=== PATIENT | female | born 1995 | race Caucasian/White ===

== ENCOUNTER 2018-01-21 16:13 | Observation (INO) ==
[2018-01-21 16:48] LABS: Basophils % 0.2 %; Eosinophils # 0.1 K/mcL (0.0-0.6); Eosinophils % 0.4 %; Hematocrit 41.2 % (35.3-44.9); Hemoglobin 12.7 g/dL (11.5-15.4); Immature Granulocytes % 0.6 % (0-4); Lymphocytes # 2.2 K/mcL (0.6-4.6); Lymphocytes % 16.9 %; Mean Corpuscular HGB Conc 30.8 g/dL (31.6-35.5); Mean Corpuscular Hemoglobin 24.2 pg (28.0-33.3); Mean Corpuscular Volume 78.6 fL (83.0-100.0); Monocytes # 0.9 K/mcL (0.0-1.3); Monocytes % 6.9 %; Neutrophils # 9.5 K/mcL (1.6-8.9); Platelet Count 311 K/mcL (140-400); Red Blood Count 5.24 M/mcL (3.82-4.97); Red Cell Distribution Width 14.2 % (11.5-14.5)
[2018-01-21 17:04] LABS: Alanine Aminotransferase 6 Units/L (7-52); Aspartate Amino Transferase 10 Units/L (13-39); BUN/Creatinine Ratio 14 (6-26); Blood Urea Nitrogen 8 mg/dL (6-20); Lactate Dehydrogenase 144 Units/L (140-271); Uric Acid 5.4 mg/dL (2.3-7.6); eGFR For Non-African Americans > 60 (> 60)
[2018-01-21 17:17] LABS: Protein/Creatinine Ratio,Urine 0.17 mg/mg (0.00-0.20)
--- NOTE | 2018-01-21 18:23 | Discharge Summary ---
Date of Encounter: 01/21/18 Time of Encounter: 18:23 - Discharge Diagnosis (1) 39 weeks gestation of Priority: Primary Status: Acute Comments: admitted for PIH evaluation after elevated BP in office BPs, labs and NST reviewed with Dr. Cain who recommends discharge home (2) NST (non-stress test) reactive on surveillance Priority: Secondary Status: Acute Comments: FHR baseline 135 bpm moderate variability +15x15 accels no decels noted. Irregular contractions Cat. 1 tracing - Discharge Medications Allergies/Adverse Reactions: Allergy/AdvReac Type Severity Reaction Status Date / Time No Known Allergies Allergy Verified 07/25/17 22:53 Data Procedures and tests throughout hospitalization: Laboratory Tests 01/21/18 01/21/18 01/21/18 16:30 16:32 16:32 WBC 12.7 H RBC 5.24 H Hgb 12.7 Hct 41.2 MCV 78.6 L MCH 24.2 L MCHC 30.8 L RDW 14.2 Plt Count 311 MPV 12.0 Immature Gran % 0.6 Seg Neutrophils % 75.0 Lymphocytes % 16.9 Monocytes % 6.9 Eosinophils % 0.4 Basophils % 0.2 Neutrophils # 9.5 H Lymphocytes # 2.2 Monocytes # 0.9 Eosinophils # 0.1 Basophils # 0.0 BUN 8 Creatinine 0.57 L Est GFR ( Amer) > 60 Est GFR (Non-Af Amer) > 60 BUN/Creatinine Ratio 14 Uric Acid 5.4 AST 10 L ALT 6 L Lactate Dehydrogenase 144 Urine Creatinine 140 Protein/Creatinin Ratio 0.17 Urine Total Protein 24 H Labs on day of discharge: Labs from last 24 hours 01/21/18 01/21/18 01/21/18 16:32 16:32 16:30 WBC 12.7 H RBC 5.24 H Hgb 12.7 Hct 41.2 MCV 78.6 L MCH 24.2 L MCHC 30.8 L RDW 14.2 Plt Count 311 MPV 12.0 Immature Gran % 0.6 Seg Neutrophils % 75.0 Lymphocytes % 16.9 Monocytes % 6.9 Eosinophils % 0.4 Basophils % 0.2 Neutrophils # 9.5 H Lymphocytes # 2.2 Monocytes # 0.9 Eosinophils # 0.1 Basophils # 0.0 BUN 8 Creatinine 0.57 L Est GFR ( Amer) > 60 Est GFR (Non-Af Amer) > 60 BUN/Creatinine Ratio 14 Uric Acid 5.4 AST 10 L ALT 6 L Lactate Dehydrogenase 144 Urine Creatinine 140 Protein/Creatinin Ratio 0.17 Urine Total Protein 24 H Date of admission: 01/21/18 15:51 Primary care physician: Jyotsna Robles CNP Discharging clinician: Eugenia Cox Anticipated date of discharge: 01/21/18 - Patient Status Disposition: Home, Self-Care Condition: Good Functional capacity at discharge: independent ambulation - Discharge Instructions Follow Up With: Jyotsna Robles CNP [Primary Care Provider] - Wilbert Peraza MD [Partnered Physician] - Additional Instructions: LABOR AND DELIVERY DISCHARGE INSTRUCTIONS Signs and Symptoms to be Reported to your Doctor Immediately: * Sudden gush, continuous or intermittent lead of fluid from vagina (note the time of gush and color of fluid) * Onset of bright red vaginal bleeding with or without pain (if you had a vaginal exam during this visit you may notice some dark red spotting. This is normal.) * Contractions that are 5 minutes apart (from the beginning of one contraction to the beginning of the next) and last 45-60 seconds; contractions that you can no longer walk, talk or laugh through. * A change in the baby's activity. This could be an increase or decrease in activity. * Severe headache which does not go away with tylenol. * Sudden swelling in the face, hands, arms and/or legs. * Upper abdominal pain - sometimes associated with heartburn or nausea and is not relieved by Maalox, Mylanta or Tums. * Kick Counts __ One hour after a meal, lay down on one side in a quiet place. Count the number of time the baby moves during an hour. If less than 6 movements, notify your physician Diet: *Force fluids, 8 to 10 tall glasses of fluid per day - may include popsicles and jello *Limit caffeine - this includes chocolate, coffee, tea, any soft drink containing such as all stu, Travis Yellow and Mountain Dew - Diet and Activity Activity: increase activity as tolerated Diet: regular diet Hospital Course [employer] Hospital course: Patient is a 22 y/o at 39w4d presents to labor and delivery from OB office after having an elevated BP. Patient denies headache, visual disturbances or epigastric pain. Patient reports good movement. Discussed POC with patient all lab work and BP. Patient scheduled for IOL on Thursday at 0800, consent and order signed. Time Attestation: Total time spent providing and/or coordinating discharge services: Time Spent: Less than 30 minutes Exam - Constitutional General appearance IM: A&O X 3, pleasant, answers questions appropriately - Respiratory Respiratory exam: Present: CTAB - Cardiovascular Cardiovascular exam IM: Present: RRR, +S1, +S2 - GI/Abdominal GI/Abdominal exam IM: normal bowel sounds - Extremities Exam Extremities exam IM: Present: full ROM, normal capillary refill, normal inspection - Neurological Exam Neurological exam: alert, oriented X3, reflexes normal - Other Additional findings: FHR 135 bpm moderate variability + 15x15 accels no decels noted Cat. 1 tracing irregular contractions - VTE Reasons for not Prescribing Prophylaxis: Treatment not Indicated - Low risk for VTE
== END 2018-01-21 18:30 | disposition home or self-care (01) ==
LOC: 1NENULAB
PROVIDERS: ADMIT Advanced Practice Midwife; ATTEND Advanced Practice Midwife

== ENCOUNTER 2018-01-23 07:52 | Inpatient (IN) ==
[2018-01-23] MEDS ORDERED: Ringers Solution, Lactated 1,000 ML IVC SCH (08:30)
[2018-01-23] MEDS ORDERED: Ondansetron 4 MG/2 ML VIAL IVP PRN (08:30)
[2018-01-23] MEDS ORDERED: *HR* Nalbuphine 10 MG/ML AMPUL IVP PRN (08:30)
[2018-01-23] MEDS ORDERED: Famotidine 20 MG/2 ML VIAL IVP PRN (08:30)
[2018-01-23] MEDS ORDERED: miSOPROStol 100 MCG TABLET PO ONE (08:30)
[2018-01-23] MEDS ORDERED: Naloxone 0.4 MG/ML INJ IVP PRN (08:30)
[2018-01-23] MEDS ORDERED: Metoclopramide 10 MG/2 ML VIAL IVP PRN (08:30)
[2018-01-23 08:56] LABS: Basophils % 0.2 %; Eosinophils # 0.2 K/mcL (0.0-0.6); Eosinophils % 0.9 %; Hematocrit 39.6 % (35.3-44.9); Hemoglobin 12.4 g/dL (11.5-15.4); Immature Granulocytes % 0.7 % (0-4); Lymphocytes # 2.7 K/mcL (0.6-4.6); Lymphocytes % 16.1 %; Mean Corpuscular HGB Conc 31.3 g/dL (31.6-35.5); Mean Corpuscular Hemoglobin 24.7 pg (28.0-33.3); Mean Corpuscular Volume 78.9 fL (83.0-100.0); Mean Platelet Volume 12.5 fL (9.4-12.4); Monocytes # 1.2 K/mcL (0.0-1.3); Monocytes % 7.3 %; Neutrophils # 12.5 K/mcL (1.6-8.9); Platelet Count 273 K/mcL (140-400); Red Blood Count 5.02 M/mcL (3.82-4.97); Red Cell Distribution Width 14.4 % (11.5-14.5); Segmented Neutrophils % 74.8 %
[2018-01-23 08:57] LABS: Amphetamine Screen,Urine Negative ng/mL (Cutoff=1000); Barbiturate Screen,Urine Negative ng/mL (Cutoff=200)
[2018-01-23 08:58] LABS: Benzodiazepines Screen,Urine Negative ng/mL (Cutoff=300); Cannabinoid Screen,Urine Negative ng/mL (Cutoff = 50); Cocaine Screen,Urine Negative ng/mL (Cutoff= 300); Opiate Screen,Urine Negative ng/mL (Cutoff=300); Phencyclidine Screen,Urine Negative ng/mL (Cutoff=25)
[2018-01-23 10:07] LABS: Uric Acid 5.2 mg/dL (2.3-7.6)
--- NOTE | 2018-01-23 10:29 | OB/GYN History & Physical ---
Date of Encounter: 01/23/18 Time of Encounter: 10:22 Assessment and Plan (1) 39 weeks gestation of Current visit: Yes Status: Acute Admit for induction of labor GBS negative Cytotec Patient may have nubain/epidural upon request Anticipate vaginal delivery POC per consult with Dr Squires History of Present Illness Chief complaint: Elective IOL HPI: Ms. Leos is a 22 year old at 39 weeks and 6 days that presents to labor and delivery for elective induction of labor. She was seen by Dr Peraza and has had a normal course. Her most recent ultrasound on 01/07 showed an EFW of 2940g and an MIAN of 24. She states positive movement. She denies headaches, visual disturbances, epigastric pain, leaking of fluid, and vaginal bleeding. Past Med Surg Social Fam HX - Past Medical History Medical history: no medical history Psychiatric history: anxiety - Past Surgical History Surgical History: other Additional surgical history: wisdom teeth - Social History Smoking Status: Never smoker Smokeless Tobacco Status: No Alcohol use: none Drug use: none - Family History Father Living Status: Still Living Hx Family Cardiac Disorders: No Hx Family Respiratory Disorders: No Hx Family Cancer: No Hx Family GI Disorders: No Hx Family Genitourinary Disorders: No Hx Family Endocrine Disorder: Yes (DM) Hx Family Musculoskeletal Disorders: No Hx Family Neuromuscular Disorders: No Hx Family Neurologic Disorders: No Hx Family HEENT Disorders: No Hx Family Autoimmune Disorders: No Hx Family Reproductive Disorders: No Hx Family Psychosocial Disorders: No Hx Family Medical Disorders: No Obstetrical History - Pregnancies : 1 Para: 0 Term: 0 : 0 Ab's: 0 Livin Medications and Allergies Vit #108/Iron/FA [ One Tablet] 1 tab PO DAILY 01/23/18 [History] Allergy/AdvReac Type Severity Reaction Status Date / Time No Known Allergies Allergy Verified 07/25/17 22:53 Review of System OB All systems PM: reviewed and no additional remarkable complaints except as stated Exam - Constitutional Constitutional: well developed, well nourished, no acute distress, average body habitus - HEENT HEENT: Normocephaly, Mucus Membranes Moist - Neck Neck exam: full ROM - Lungs Respiratory exam: CTAB - Cardiovascular Cardiovascular exam: RRR, +S1, +S2 - Abdomen Abdomen: Present: bowel sounds normal, gravid, non tender - Extremities Extremities exam: normal capillary refill, normal inspection, radial pulses palpable and symmetrical Deep Tendon Reflex Grade: 2+ Normal - Vulva Vulva: bilateral: normal - Vagina Vagina: Present: normal moisture - Cervix Dilation: 2 (per office exam on 01/21) Effacement: 60 Station: -2 - Anus/Rectum Anus/Rectum: Present: normal perianal skin Results Result Diagrams: 01/23/18 08:32 Abnormal lab results WBC 16.7 K/mcL (4.3-11.1) H 01/23/18 08:32 RBC 5.02 M/mcL (3.82-4.97) H 01/23/18 08:32 MCV 78.9 fL (83.0-100.0) L 01/23/18 08:32 MCH 24.7 pg (28.0-33.3) L 01/23/18 08:32 MCHC 31.3 g/dL (31.6-35.5) L 01/23/18 08:32 MPV 12.5 fL (9.4-12.4) H 01/23/18 08:32 Neutrophils # 12.5 K/mcL (1.6-8.9) H 01/23/18 08:32 AST 10 Units/L (13-39) L 01/23/18 09:45 ALT 5 Units/L (7-52) L 01/23/18 09:45 Lactate Dehydrogenase 139 Units/L (140-271) L 01/23/18 09:45 All other labs normal. - VTE Reasons for not Prescribing Prophylaxis: Treatment not Indicated - Low risk for VTE
[2018-01-23] MEDS ORDERED: EPHEDrine 50 MG/ML VIAL IVP PRN (13:08)
[2018-01-23] MEDS ORDERED: Ringers Solution, Lactated 500 ML IVC ONE (13:08)
--- NOTE | 2018-01-23 13:08 | Anesthesia Evaluation PreOp ---
Date of Encounter: 01/23/18 Time of Encounter: 13:06 - Past History Planned Operation: KYLE Cardiac History: Denies any Significant Hx Pulmonary History: Denies Any Significant HX REED PRESS FEEDER History: Denies Any Significant HX Other Medical History: Denies Any Significant HX Anesthesia History: No Prior Anesthetic Complications : Yes (39.6 ) Alcohol Use: none Drug use: none Medications and Allergies Vit #108/Iron/FA [ One Tablet] 1 tab PO DAILY 01/23/18 [History] Allergy/AdvReac Type Severity Reaction Status Date / Time No Known Allergies Allergy Verified 07/25/17 22:53 - Meds/Allergy Pre-op Review Medications Reviewed: Yes Allergies Reviewed: Yes Beta Blockers on Current Med List: No Anesthesia Results - Labs 01/23/18 08:32 Anesthesia Exam O2 Sat Height 1.7 m Weight 86.8 kg NPO (# of Hours): 4 Pain Scale: 1 Pain Scale Used: Numeric (1 - 10) - HEENT Pupil (Motor): Pupils equal Mallampati: II Teeth: Normal Oral Opening: Greater than 3 - REED PRESS FEEDER LOC: Oriented REED PRESS FEEDER Motor: Normal RUE, Normal LUE, Normal RLE, Normal LLE, Normal Face REED PRESS FEEDER Sensory: Normal: RUE, LUE, RLE, LLE, Face - Cardiac Rhythm: Regular Murmur: None JVD: No Carotid Bruit: No - Pulmonary Breath Sounds: bilateral Clear Respiratory Effort: Symmetrical Anesthesia Assess/Plan ASA Score: 2 Level of consciousness: Cooperative, Oriented Anesthetic Plan: General (plan b), Epidural (plan a) Autologous Blood: Yes Monitoring Plan: Standard Monitors Recovery Plan: PACU
[2018-01-23] MEDS ORDERED: Epidural Premix (fent/bupiv) 110 ML EP SCH (13:15)
--- NOTE | 2018-01-23 14:08 | OB Labor Progress Note ---
Date of Encounter: 01/23/18 Time of Encounter: 14:06 Labor Progress Note - Subjective Subjective: Patient states she is feeling some contractions in her lower back and on her left lower abdomen, but they are currently tolerable - Vital Signs Vital Signs: VSS - Cervix Cervix: 3/70/-2 posterior - Heart Tones Heart Tones: FHTs 140 moderate variability with 15 x 15 accels; category I tracing - Amanda Amanda: uterine irritability - Plan Plan: Continue routine labor management GBS negative Start pitocin Patient may have nubain/epidural upon request Consider AROM after 4 cm dilation Anticipate vaginal delivery POC per consult with Dr Squires
[2018-01-23] MEDS ORDERED: Oxytocin 20 units/ LR 1000 mL 20 UNIT/1,000 ML BAG IVC SCH (14:15)
[2018-01-23] MEDS ORDERED: Lidocaine -MPF 1% 5 ML AMPUL ONE ×2 (14:41→22:02)
[2018-01-23] MEDS: Mag Hydrox/Al Hydrox/Simeth 30 ML UDC PO PRN ×2 (16:31→23:36)
[2018-01-23] MEDS ORDERED: Acetaminophen 325 MG TABLET PO ONE (16:54)
--- NOTE | 2018-01-23 19:50 | OB Labor Progress Note ---
Date of Encounter: 01/23/18 Time of Encounter: 19:47 Labor Progress Note - Subjective Subjective: Patient resting in bed; states contractions are uncomfortable, but tolerable - Vital Signs Vital Signs: VSS - Cervix Cervix: 4/80/-1 - Heart Tones Heart Tones: Category I tracing 145 baseline - [place]: Contractions every 3-5 minutes per toco. Difficult to trace with toco - Interventions Interventions: AROM for large amount of clear fluid; IUPC placed without difficulty. Patient and fetus tolerated well. - Plan Plan: Continue routine labor management GBS negative Patient may have nubain/epidural upon request Continue to titrate pitocin for adequate contractions Anticipate vaginal delivery POC per consult with Dr Squires
--- NOTE | 2018-01-23 22:24 | Anesthesia Procedures ---
Addendum entered and electronically signed by Adonis Galarza CRNA 01/24/18 03:39: To primary at 0320. Original Note: Date of Encounter: 01/23/18 Time of Encounter: 22:22 Procedures: Anesthesia - Epidural/Spinal Patient ID/Chart reviewed: Yes Patient examined: Yes OB Eval: Gestational age: 39 OB Eval: : 1 OB Eval: Hx Para: 0 OB Eval: Dilated at (cm): 5 OB Eval: Contractions: Non-stressed pattern Consent Obtained: Yes Supplemental Oxygen: None/Room Air Site Prep: Aseptic Technique, Sterile prep and drape, Povidone-Iodine 1% Patient position: upright Local Anesthetic: Lidocaine 1% Amount of Local Anesthetic used: 3 Touhy Needle Gauge: 18 Touhy Needle Depth (cm): 8 Catheter Depth at Skin (cm): 20 Test Dose (1.5% Lido + Epi): Volume given (mls): 5 Test Dose Result: Negative Loading Dose: Other: 10mls of epidural pharm bag premix solution Loading Dose Administered: Thru Catheter Infusion Med: 0.125% Bupivacaine w/ 2 mcg/ml Fentanyl Infusion Rate (mls/hr): 16 ([id number]) Catheter Secured in Place: Tegaderm, Tape Interspace Used: L3-L4 (attempt x1, cath pulled out d/t heme when it was threaded into space. Successful attempt made at L4-5) Loss of Resistance (JOSE): Yes Blood: Yes (at L3-4 level, neg at L4-5) CSF: No Paresthesia: No Procedure: pt tolerated procedure well. no complications. vss. fhr stable.
--- NOTE | 2018-01-24 01:09 | Event Note ---
Date of Encounter: 01/23/18 Time of Encounter: 23:40 Staff nurse alerted me to category II tracing; pitocin turned off. Lates resolved after turning off pitocin
--- NOTE | 2018-01-24 02:30 | Event Note ---
Date of Encounter: 01/24/18 Time of Encounter: 02:29 Late variables have returned despite intrauterine resuscitative measures. Patient's care transferred to Dr Squires
[2018-01-24] MEDS ORDERED: *HR* Phenylephrine 10 MG/ML VIAL ONE (03:05)
[2018-01-24] MEDS ORDERED: Chloroprocaine/PF 20 ML VIAL INFILT ONE ×2 (03:05→03:36)
[2018-01-24] MEDS ORDERED: Ondansetron 4 MG/2 ML VIAL ONE ×2 (03:05→04:24)
[2018-01-24] MEDS ORDERED: *HR* Oxytocin 10 UNIT/ML VIAL IM ONE (03:05)
[2018-01-24] MEDS ORDERED: EPHEDrine 50 MG/ML VIAL ONE (03:06)
[2018-01-24] MEDS ORDERED: *HR* Morphine Sulfate/PF 10 MG/10 ML AMPUL ONE (03:09)
[2018-01-24] MEDS ORDERED: ceFAZolin 2,000 MG in Water for inj. (sterile) 20 ML 20 ML IVP ONE (03:18)
[2018-01-24] MEDS ORDERED: Ringers Solution, Lactated 1,000 ML ONE (03:25)
[2018-01-24] MEDS ORDERED: Lidocaine/EPI 1:200k 2% PF 20 ML VIAL ONE (03:26)
[2018-01-24] MEDS ORDERED: *HR* HYDROmorphone (PF) 1 MG/ML SYRINGE IVP PRN (03:43)
[2018-01-24] MEDS ORDERED: *HR* OxyCODONE/APAP 5/325 TABLET PO PRN (03:43)
[2018-01-24] MEDS ORDERED: Acetaminophen IV 1,000 MG/100 ML INFUS..BTL IVPB ONE (03:43)
[2018-01-24] MEDS ORDERED: Ondansetron 4 MG/2 ML VIAL IVP ONE (03:43)
[2018-01-24] MEDS ORDERED: Naloxone 0.4 MG/ML INJ IVP PRN (03:43)
[2018-01-24] MEDS ORDERED: *HR* Propofol 200 MG/20 ML VIAL IVP ONE (03:48)
[2018-01-24] MEDS ORDERED: *HR* Succinylcholine 200 MG/10 ML VIAL IVP ONE (03:56)
[2018-01-24] MEDS ORDERED: CeFAZolin Premix DUPLEX 2,000 MG/50 ML BAG IVPB ONE (04:00)
--- NOTE | 2018-01-24 06:40 | Anesthesia Evaluation Post Op ---
Date of Encounter: 01/24/18 Time of Encounter: 06:39 - Lungs Lungs: Clear Ascult./Percussion - Airway Airway: Non-obstructed - Cardiovascular Regular Rate, Baseline Rhythm - Mental Status Mental Status: Alert & Oriented, Answers Appropriately - Pain Pain Scale: 2 Pain Scale used: Numeric (1 - 10) - Nausea Vomiting Nausea Vomiting: Not Present - Hydration Hydration: Tolerates oral liquids, Ignacio catheter - Discharge PostOp Status: Transfer Patient to floor
[2018-01-24] MEDS ORDERED: *HR* Morphine 2 MG/ML SYRINGE IVP PRN (06:42)
--- NOTE | 2018-01-24 07:14 | OB/GYN Procedure Note ---
Section - Preop diagnosis: category 2 FHT tracing (failure to progress @ 4-5cm with tachycardia with recurrent variable decels/late decels) Procedure: primary low transverse Surgeon: Rhona Squires Quantitated Blood Loss: 400 Was there an assistant director of residence life present: Yes Highway Construction Inspector: Eugenia Kuhn Anesthesiologist: Candy Bo [place] Monitoring Technician: Adonis Galarza Anesthesia Type: Epidural section complications: none Disposition: L&D Recovery Room Specimens: Cord segment - Infant (s) A Delivery Date: 01/24/18 Delivery Time: 03:49 Presentation: vertex Gender: Female Gram Weight: 2.895 kg at 1 minute: 8 at 5 minutes: 9 Shoulder Dystocia: not encountered Placenta: complete extraction Cord: nuchal cord (x 3) - Narrative Narrative: The patient was taken to the operating room where epidural anesthesia was found to be adequate. The patient was prepped and draped in the usual sterile fashion in the dorsal supine position with a left-trejo tilt. A Pfannenstiel skin incision was made with the scalpel and carried through to the underlying layer of fascia. The fascia was incised in the midline and extended laterally bluntly. Rebel clamps were used to elevate the superior aspect of the fascial incision, which was elevated, and the underlying rectus muscles were dissected off bluntly. Attention was then turned to the inferior aspect of the fascial incision, which in similar fashion was grasped with Rebel clamps, elevated, and the underlying rectus muscles were dissected off bluntly. The rectus muscles were dissected in the midline. The peritoneum was bluntly dissected, entered, and extended superiorly and inferiorly with good visualization of the bladder. The bladder blade was inserted. The lower uterine segment was incised in a transverse fashion using the scalpel and extended using manual traction. Clear fluid was noted. The infant was subsequently delivered atraumatically. The nose and mouth were bulb suctioned. The cord was clamped and cut. The infant was subsequently handed to the awaiting nursery nurse. The placenta was removed spontaneously intact with a 3-vessel cord noted. The uterus was exteriorized and cleared of all clots and debris. The uterine incision was repaired in 2 layers using 0 vicryl suture. Hemostasis was visualized. The uterus was returned to the abdomen. The uterine incision was reexamined and was noted to be hemostatic. The fascia was closed with 0 Vicryl, the subcutaneous layer was closed with 3-0 vicryl, and the skin was closed with 4-0 vicryl. Sponge, lap, and instrument counts were correct x2. The patient was stable at the completion of the procedure and was subsequently transferred to the recovery room in stable condition.
[2018-01-24] MEDS ORDERED: Metoclopramide 10 MG/2 ML VIAL IVP PRN (07:41)
[2018-01-24] MEDS ORDERED: Oxytocin 20 units/ LR 1000 mL 20 UNIT/1,000 ML BAG IVC SCH (07:41)
[2018-01-24] MEDS ORDERED: Ondansetron 4 MG/2 ML VIAL IVP PRN (07:41)
[2018-01-24] MEDS ORDERED: Ringers Solution, Lactated 1,000 ML IVC SCH (07:41)
[2018-01-24] MEDS ORDERED: Simethicone 80 MG TAB.CHEW PO PRN (07:41)
[2018-01-24] MEDS ORDERED: Sennosides 8.6 MG TABLET PO PRN (07:41)
[2018-01-24] MEDS ORDERED: Prenatal Vit/FA 1 EACH TABLET PO SCH (09:00)
[2018-01-24] MEDS: Ibuprofen 600 MG TABLET PO PRN ×2 (14:49→23:51)
[2018-01-24] MEDS: *HR* OxyCODONE/APAP 5/325 TABLET PO PRN (14:50)
[2018-01-25] MEDS: *HR* OxyCODONE/APAP 5/325 TABLET PO PRN ×3 (01:11→17:53)
[2018-01-25 05:23] LABS: Basophils % 0.2 %; Eosinophils # 0.1 K/mcL (0.0-0.6); Eosinophils % 0.6 %; Hematocrit 30.4 % (35.3-44.9); Immature Granulocytes % 0.7 % (0-4); Lymphocytes # 2.1 K/mcL (0.6-4.6); Mean Corpuscular HGB Conc 31.3 g/dL (31.6-35.5); Mean Platelet Volume 11.7 fL (9.4-12.4); Monocytes # 0.7 K/mcL (0.0-1.3); Monocytes % 6.4 %; Neutrophils # 8.5 K/mcL (1.6-8.9); Platelet Count 179 K/mcL (140-400); Red Cell Distribution Width 14.6 % (11.5-14.5); Segmented Neutrophils % 74.1 %
[2018-01-25 05:27] LABS: Hemoglobin 9.5 g/dL (11.5-15.4)
[2018-01-25] MEDS: Prenatal Vit/FA 1 EACH TABLET PO SCH (08:16)
--- NOTE | 2018-01-25 08:26 | OB/GYN Progress Note ---
Date of Encounter: 01/25/18 Time of Encounter: 08:22 - Assessment and Plan (1) Status post primary low transverse section Current Visit: Yes Status: Acute Continue routine /postop care Anticipate discharge home (2) Upper respiratory infection Current Visit: Yes Status: Acute Decongestant, antitussive, and saline nasal spray ordered. Patient c/o increased coughing Qualifiers: URI type: unspecified viral URI Qualified Code(s): J06.9 - Acute upper respiratory infection, unspecified Subjective - Subjective Principal diagnosis: S/P Primary Section Interval history: S/P primary section day 1 Pain well controlled Lochia light and without clots VSS Tolerating regular diet; passing flatus Voiding without difficulty Bottle feeding Anticipate discharge home tomorrow POC per consult with Dr Borrego Patient reports: appetite normal, voiding normally, pain well controlled, ambulating normally : doing well, bottle feeding Objective - Vital Signs Latest vital signs: Vital Signs Temp Pulse Resp BP Pulse Ox 01/25/18 08:03 97.8 F 66 14 124/70 99 01/24/18 23:48 97.8 F 74 16 120/77 99 01/24/18 19:41 97.5 F L 70 16 131/90 99 01/24/18 15:12 98.6 F 82 18 128/86 98 01/24/18 13:17 98.9 F 86 16 123/80 98 01/24/18 09:15 98.1 F 79 16 125/83 97 Intake and Output 01/24/18 01/25/18 01/25/18 23:59 07:59 15:59 Intake Total 0 / 0 Output Total 1100 / 1100 Balance -1100 / -1100 Intake: Oral 0 / 0 Output: Urine 1100 / 1100 - Exam Lungs: bilateral: normal Chest: Normal S1, Normal S2 Extremities: Present: normal Abdomen: Present: normal appearance, soft, tenderness (with palpation). Absent: gravid Incision: Present: normal, dry (Dressing C/D/I), intact Uterus: Present: normal, firm Fundal Height: 0 (@U) - Labs Labs: Laboratory Results - last 24 hr 01/25/18 05:11 WBC 11.5 H RBC 3.80 L Hgb 9.5 L D Hct 30.4 L MCV 80.0 L MCH 25.0 L MCHC 31.3 L RDW 14.6 H Plt Count 179 MPV 11.7 Immature Gran % 0.7 Seg Neutrophils % 74.1 Lymphocytes % 18.0 Monocytes % 6.4 Eosinophils % 0.6 Basophils % 0.2 Neutrophils # 8.5 Lymphocytes # 2.1 Monocytes # 0.7 Eosinophils # 0.1 Basophils # 0.0
[2018-01-25] MEDS ORDERED: Saline Nasal Spray 44 ML BOTTLE NS PRN (08:41)
[2018-01-25] MEDS: Loratadine 10 MG TABLET PO SCH (10:03)
[2018-01-25] MEDS ORDERED: Ondansetron ODT 4 MG TAB.RAPDIS SL PRN (12:38)
[2018-01-25] MEDS: Ibuprofen 600 MG TABLET PO PRN (20:12)
[2018-01-26] MEDS: Ibuprofen 600 MG TABLET PO PRN (03:53)
[2018-01-26] MEDS: *HR* OxyCODONE/APAP 5/325 TABLET PO PRN ×2 (03:54→09:40)
[2018-01-26 08:40] VITALS: BP 123/88
[2018-01-26] MEDS: Prenatal Vit/FA 1 EACH TABLET PO SCH (09:39)
[2018-01-26] MEDS: Loratadine 10 MG TABLET PO SCH (09:40)
--- NOTE | 2018-01-26 09:41 | Discharge Summary ---
Date of Encounter: 01/26/18 Time of Encounter: 09:39 - Discharge Diagnosis (1) anemia Priority: Secondary Status: Acute Comments: Continue iron supplementation daily for 3 month (2) Status post primary low transverse section Priority: Primary Status: Acute Comments: Feeling well Tolerating regular diet Pain well-controlled with by mouth pain meds Ambulating independently Voiding independently Lochia light Passing flatus, no BM yet Vital signs stable Discharge home today - Discharge Medications Prescriptions: OxyCODONE/APAP 5/325 [Percocet 5/325 MG] 1 each PO Q4HR PRN 5 Days #30 tablet PRN Reason: Moderate pain 4-6 Ibuprofen [Motrin] 600 mg PO Q6HR PRN #30 tablet PRN Reason: Cramping Docusate [Colace] 100 mg PO BID #60 capsule Ferrous Sulfate 325 mg PO BIDWM #60 tablet Home Medications: Vit #108/Iron/FA [ One Tablet] 1 tab PO DAILY 01/23/18 [History] Docusate [Colace] 100 mg PO BID #60 capsule 01/26/18 [Rx] Ferrous Sulfate 325 mg PO BIDWM #60 tablet 01/26/18 [Rx] Ibuprofen [Motrin] 600 mg PO Q6HR PRN #30 tablet 01/26/18 [Rx] OxyCODONE/APAP 5/325 [Percocet 5/325 MG] 1 each PO Q4HR PRN 5 Days #30 tablet 01/26/18 [Rx] Allergies/Adverse Reactions: Allergy/AdvReac Type Severity Reaction Status Date / Time No Known Allergies Allergy Verified 07/25/17 22:53 Data Procedures and tests throughout hospitalization: Laboratory Tests 01/23/18 01/23/18 01/23/18 08:30 08:32 08:37 WBC 16.7 H RBC 5.02 H Hgb 12.4 Hct 39.6 MCV 78.9 L MCH 24.7 L MCHC 31.3 L RDW 14.4 Plt Count 273 MPV 12.5 H Immature Gran % 0.7 Seg Neutrophils % 74.8 Lymphocytes % 16.1 Monocytes % 7.3 Eosinophils % 0.9 Basophils % 0.2 Neutrophils # 12.5 H Lymphocytes # 2.7 Monocytes # 1.2 Eosinophils # 0.2 Basophils # 0.0 Uric Acid AST ALT Lactate Dehydrogenase Urine Opiates Screen Negative Ur Barbiturates Screen Negative Ur Phencyclidine Scrn Negative Ur Amphetamines Screen Negative U Benzodiazepines Scrn Negative Urine Cocaine Screen Negative U Marijuana (THC) Screen Negative Ur Drug Screen Interp See Below Specimen Rejected Hemolyzed 01/23/18 01/25/18 09:45 05:11 WBC 11.5 H RBC 3.80 L Hgb 9.5 L D Hct 30.4 L MCV 80.0 L MCH 25.0 L MCHC 31.3 L RDW 14.6 H Plt Count 179 MPV 11.7 Immature Gran % 0.7 Seg Neutrophils % 74.1 Lymphocytes % 18.0 Monocytes % 6.4 Eosinophils % 0.6 Basophils % 0.2 Neutrophils # 8.5 Lymphocytes # 2.1 Monocytes # 0.7 Eosinophils # 0.1 Basophils # 0.0 Uric Acid 5.2 AST 10 L ALT 5 L Lactate Dehydrogenase 139 L Urine Opiates Screen Ur Barbiturates Screen Ur Phencyclidine Scrn Ur Amphetamines Screen U Benzodiazepines Scrn Urine Cocaine Screen U Marijuana (THC) Screen Ur Drug Screen Interp Specimen Rejected Date of admission: 01/23/18 07:52 Primary care physician: Jyotsna Robles CNP Discharging clinician: Ana Rosa Khoury Anticipated date of discharge: 01/26/18 - Patient Status Disposition: Home, Self-Care Condition: Good Functional capacity at discharge: independent ambulation Overall status at discharge: patient is progressing back to baseline - Discharge Instructions Follow Up With: Jyotsna Robles CNP [Primary Care Provider] - Wilbert Peraza MD [Partnered Physician] - - Diet and Activity Activity: increase activity as tolerated Diet: regular diet Hospital Course Procedures: S/P PLTCS Reason for admission: induction of labor, IUP at term Delivery: section Episiotomy: none Laceration: none Other procedures: none complications: none Discharge diagnosis: IUP at term delivered [place] baby: female Hospital course: Patient was admitted for elective induction of labor at 39 weeks 6 days gestation. She progressed to not complete station. heart tracing showed recurrent lates that were not resolved with intervention. Patient was taken for primary low transverse secondary to category 2 tracing. was delivered in ROP position with a nuchal 3. course has been uncomplicated. Patient will be discharged home with the usual medications and follow up. Time Attestation: Total time spent providing and/or coordinating discharge services: Time Spent: Less than 30 minutes - VTE Reasons for not Prescribing Prophylaxis: Treatment not Indicated - Low risk for VTE Documentation of Mechanical Device: Intermittent pneumatic compression device Exam - Constitutional Vitals: Temp Pulse Resp BP Pulse Ox 98.2 F 72 16 123/88 99 01/26/18 08:00 01/26/18 08:00 01/26/18 08:55 01/26/18 08:00 01/26/18 08:00 General appearance IM: A&O X 3 - Respiratory Respiratory exam: Present: CTAB - Cardiovascular Cardiovascular exam IM: Present: RRR, +S1, +S2 - GI/Abdominal GI/Abdominal exam IM: normal bowel sounds, no peritoneal signs Incision: normal, dry, dressed - Rectal Rectal exam: deferred - Uterine Tone: Firm Uterus Position: 1 Finger Below Umbilicus, Midline - Extremities Exam Extremities exam IM: Present: normal capillary refill, normal inspection, radial pulses palpable and symmetrical - Neurological Exam Neurological exam: alert, CN II-XII intact, normal gait, oriented X3, reflexes normal, no focal deficits, strengths equal and symetr throughout
== END 2018-01-26 11:10 | disposition home or self-care (01) | DRG 540 ==
LOC: 1NENULAB 07:52 → 1NENUOBS 01-24 06:53
PROVIDERS: ADMIT Advanced Practice Midwife; ATTEND Advanced Practice Midwife

== ENCOUNTER 2018-03-06 05:14 | Observation (INO) ==
[2018-03-06] MEDS ORDERED: 0.9 % Sodium Chloride 1,000 ML IVC SCH ×2 (07:00→10:32)
[2018-03-06] MEDS ORDERED: Ketorolac 15 MG/ML VIAL IVP PRN ×2 (07:00→10:32)
[2018-03-06] MEDS ORDERED: Naloxone 0.4 MG/ML INJ IVP PRN ×2 (07:00→10:32)
[2018-03-06] MEDS ORDERED: Hyoscyamine SL 0.125 MG TAB.SUBL SL PRN ×2 (07:00→10:32)
[2018-03-06] MEDS ORDERED: Ondansetron 4 MG/2 ML VIAL IVP PRN ×2 (07:00→10:32)
[2018-03-06] MEDS ORDERED: OXYCODONE Oral CONC 10 MG/0.5 ML ORAL.SYG SL PRN ×3 (07:00→10:32)
[2018-03-06] MEDS ORDERED: *HR* Belladonna Alkaloids/Opium 30 MG RECTAL SUPPOSITORY RC PRN ×2 (07:00→10:32)
--- NOTE | 2018-03-06 07:58 | Urology History & Physical ---
Date of Encounter: 03/06/18 Time of Encounter: 07:54 Assessment and Plan (1) Ureteral stone with hydronephrosis Current Visit: Yes Status: Acute I reviewed the outside CT scan. There is a 1-2 mm right ureterovesical stone with severe hydronephrosis. There were no other abnormal findings on the CT scan. Outside labs show a white blood cell count of 10,000 hemoglobin of 13. Creatinine 1.07 there was no indication of a urinary tract infection based on her urinalysis. I did not see a test provided. I ordered a urine test this morning. I offered the patient trial of passage because the stone is small. She believes the stone may have been present for her and does not want to be discharged until the stone is addressed. We discussed weaning overnight and proceeding tomorrow to see if she could pass the stone whi le hospitalized. After discussion, she wishes to proceed today. We will proceed with ureteroscopic stone extraction. She understands she will require a stent placement for at least 72 hours. We discussed risks of the procedure which includes injury to her urinary tract, stricture, reaction to the contrast, infection, stent discomfort. History of Present Illness Chief complaint: Flank pain HPI: Ms. Leos is a 23 year old female transferred from [facility] last night because of a small distal right ureteral calculi and severe hydronephrosis. Creatinine 1.07. No fever. No concern for sepsis. Transfer because of pain control. She reports no history of stones but potentially a family history of stones in her father. She continues to have 5 out of 10 pain this morning. She is 6 weeks . She reports having significant issues with discomfort during Past Med Surg Social Fam HX - Past Medical History Medical history: no medical history Psychiatric history: anxiety - Past Surgical History Surgical History: , other Additional surgical history: wisdom teeth - Social History Smoking Status: Never smoker Smokeless Tobacco Status: No Alcohol use: none Drug use: none - Family History Father Living Status: Still Living Hx Family Cardiac Disorders: No Hx Family Respiratory Disorders: No Hx Family Cancer: No Hx Family GI Disorders: No Hx Family Endocrine Disorder: Yes (DM) Hx Family Neuromuscular Disorders: No Hx Family Neurologic Disorders: No Hx Family HEENT Disorders: No Hx Family Autoimmune Disorders: No Medications and Allergies Vit #108/Iron/FA [ One Tablet] 1 tab PO DAILY 01/23/18 [History] Docusate [Colace] 100 mg PO BID #60 capsule 01/26/18 [Rx] Ferrous Sulfate 325 mg PO BIDWM #60 tablet 01/26/18 [Rx] Ibuprofen [Motrin] 600 mg PO Q6HR PRN #30 tablet 01/26/18 [Rx] Allergy/AdvReac Type Severity Reaction Status Date / Time No Known Allergies Allergy Verified 07/25/17 22:53 Review of Systems - Constitutional no fatigue, no fever(s), no malaise - EENT Nose, mouth and throat: no dizziness - Cardiovascular no chest pain - Respiratory no cough - Gastrointestinal abdominal pain, nausea - Genitourinary Genitourinary: flank pain - Musculoskeletal back pain - Integumentary no erythema - Neurological no confusion - Psychiatric no anxiety - Hematologic/Lymphatic no easy bleeding Exam Initial Vital Signs Temp Pulse Resp BP Pulse Ox 98.0 F 67 15 116/75 97 03/06/18 07:19 03/06/18 07:19 03/06/18 07:19 03/06/18 07:19 03/06/18 07:19 - General physical appearance Present: well developed, no distress - Eyes Present: PERRL - ENT Present: normal nares - Neck Present: no masses - Respiratory Present: normal respiratory effort - Cardiovascular Cardiovascular exam IM: RRR - Abdomen Abdomen: Present: soft, suprapubic tenderness - Integumentary Present: no rash - Neurologic Present: normal coordination. Absent: disoriented, confused - Musculoskeletal Absent: normal gait - Additional Findings Mild right CVA tenderness Urology Results - Labs All other labs normal.
[2018-03-06] MEDS ORDERED: *HR* Midazolam HCl 2 MG/2 ML VIAL ONE (08:10)
[2018-03-06] MEDS ORDERED: *HR* HYDROMORPHONE 2 MG/ML VIAL ONE (08:10)
[2018-03-06] MEDS ORDERED: Dexamethasone 4 MG/ML VIAL ONE (08:11)
[2018-03-06] MEDS ORDERED: *HR* Propofol 200 MG/20 ML VIAL IVP ONE (08:11)
[2018-03-06] MEDS ORDERED: Lidocaine -MPF 2% 2 ML VIAL ONE (08:11)
[2018-03-06] MEDS ORDERED: Ondansetron 4 MG/2 ML VIAL ONE (08:11)
--- NOTE | 2018-03-06 08:14 | Anesthesia Evaluation PreOp ---
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 Other Medical History: Denies Any Significant HX Anesthesia History: Past Anesthesia (No prior GA), MH (NO FamHx of ) : No (Pt is 6 weeks Post-) Alcohol Use: none Drug use: none Medications and Allergies Vit #108/Iron/FA [ One Tablet] 1 tab PO DAILY 01/23/18 [History] Docusate [Colace] 100 mg PO BID #60 capsule 01/26/18 [Rx] Ferrous Sulfate 325 mg PO BIDWM #60 tablet 01/26/18 [Rx] Ibuprofen [Motrin] 600 mg PO Q6HR PRN #30 tablet 01/26/18 [Rx] Allergy/AdvReac Type Severity Reaction Status Date / Time No Known Allergies Allergy Verified 07/25/17 22:53 - Meds/Allergy Pre-op Review Medications Reviewed: Yes Allergies Reviewed: Yes Beta Blockers on Current Med List: No Anesthesia Results - Labs Laboratory Results Urine Test Negative (Negative) 03/06/18 07:50 Anesthesia Exam Vital Signs Temp Pulse Resp BP Pulse Ox 03/06/18 07:19 98.0 F 67 15 116/75 97 Intake and Output 03/05/18 03/06/18 03/06/18 23:59 07:59 15:59 Intake Total 0 / 0 Output Total 0 / 0 Balance 0 / 0 Intake: Oral 0 / 0 Output: Urine 0 / 0 Other: Weight 77.111 kg Patient Weight 03/06/18 23:59 Weight 77.111 kg Height: 5'7" Weight: 170# BMI = 27 NPO (# of Hours): MNoc - HEENT Pupil (Motor): Pupils equal, EOMI Mallampati: I Teeth: Normal Oral Opening: Greater than 3 - 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 Samson Chance MD
[2018-03-06] MEDS ORDERED: Isovue-300 50 ML VIAL IVP ONE (08:28)
[2018-03-06] MEDS ORDERED: Metoclopramide 10 MG/2 ML VIAL ONE (08:54)
[2018-03-06] MEDS ORDERED: Acetaminophen IV 1,000 MG/100 ML INFUS..BTL ONE (08:54)
[2018-03-06] MEDS ORDERED: Famotidine 20 MG/2 ML VIAL ONE (08:54)
--- NOTE | 2018-03-06 08:55 | Discharge Summary ---
Date of Encounter: 03/06/18 Time of Encounter: 10:03 - Discharge Diagnosis (1) Ureteral stone with hydronephrosis Priority: Primary Status: Resolved Comments: Status post stone extraction and stent placement - Hospital Course Hospital course: Ms. Leos is a 23 year old female - Time Spent with Patient Total time spent providing and/or coordinating discharge services: Labs on day of discharge: Labs from last 24 hours 03/06/18 07:50 Urine Test Negative - Discharge Medications Prescriptions: Cephalexin [Keflex] 500 mg PO BID #14 capsule Tramadol HCl [Ultram] 50 mg PO QID PRN 7 Days #30 tab PRN Reason: Pain Home Medications: Docusate [Colace] 100 mg PO BID #60 capsule 01/26/18 [Rx] Ferrous Sulfate 325 mg PO BIDWM #60 tablet 01/26/18 [Rx] Cephalexin [Keflex] 500 mg PO BID #14 capsule 03/06/18 [Rx] Tramadol HCl [Ultram] 50 mg PO QID PRN 7 Days #30 tab 03/06/18 [Rx] Allergies/Adverse Reactions: Allergy/AdvReac Type Severity Reaction Status Date / Time No Known Allergies Allergy Verified 07/25/17 22:53 Date of admission: 03/06/18 06:23 Primary care physician: PCP NONE Discharging clinician: Anthony Ferrer Anticipated date of discharge: 03/06/18 Exam Initial Vital Signs Temp Pulse Resp BP Pulse Ox 98.0 F 67 15 116/75 97 03/06/18 07:19 03/06/18 07:19 03/06/18 07:19 03/06/18 07:19 03/06/18 07:19 - General physical appearance Present: well developed, no distress - Patient Status Disposition: Home, Self-Care Condition: Good Functional capacity at discharge: independent ambulation Overall status at discharge: patient is progressing back to baseline - Discharge Instructions Follow Up With: NONE,PCP [Primary Care Provider] - Anthony Ferrer MD [Partnered Physician] - (My office will contact patient with follow-up appointment. Please see patient instructions for management of the stent) Additional Instructions: Expect stent discomfort - urgency, frequency, burning with urination and blood in the urine My office will contact pt to arrange stent removal (in the office) OK to take OTC AZO for stent pain OK to take ibuprofen and tylenol for pain. Call if symptoms are severe or fever >101. - Diet and Activity Activity: increase activity as tolerated, other Diet: advance to your usual diet
[2018-03-06] MEDS ORDERED: cefTRIAXone 1,000 MG in Water for inj. (sterile) 20 ML 10 ML IVP SCH (09:00)
--- NOTE | 2018-03-06 10:09 | Operative Note ---
Date of procedure: 03/06/18 Pre-op diagnosis: Right distal ureteral stone Post-op diagnosis: same Procedure: Right ureteroscopic stone extraction Right retrograde pyelogram Right ureteral stent placement Anesthesia: GETA Surgeon: Anthony Ferrer Was there an public health assistant present: No Estimated blood loss (cc): 0 Specimen: Stone Condition: stable Disposition: PACU Procedure in Detail: PROCEDURE IN DETAIL: Patient was taken back to the operating room, positioned supine on the operating table. Anesthesia was applied without complication. They were moved into dorsal lithotomy. Careful attention was maintained to cushion all pressure points for patient's safety. They were prepped and draped in sterile fashion. Time-out was performed with the proper patient and procedure. A 21-Serbian rigid cystoscope was inserted into the bladder without difficulty. Systematic examination of bladder revealed no abnormalities. The ureteral orifice was cannulated using a 5-Serbian ureteral Catheter and a retrograde pyelogram was performed using Isovue. A filling defect was identified which corresponded to the stone. The right ureteral orifice was quite edematous and erythematous. There was severe hydroureter and hydronephrosis. At that point, a zip wire was placed through the 5-Serbian and confirmed in the renal pelvis with fluoroscopy. An 8-10 dilator was then placed over the zip wire to passively dilate the ureteral orifice. A semi-rigid ureteroscope was carefully inserted into the bladder and guided into the ureteral oriface. At first I did not encounter the stone and I eventually proceeded with a flexible ureteroscope and guided this up into the renal pelvis. On removal of the flexible ureteroscope identified that the stone was actually in the bladder and believe that it was extracted during the dilation of the ureteral orifice with the 8/10 dilator. It was eventually retrieved and sent for analysis. The hydroureter was quite tortuous and I did have some difficulty guiding the zip wire into the renal pelvis but used the aid of the flexible ureteroscope to straighten the ureter and passed the wire. At the end of the procedure I placed a 4.8 x 26 ureteral stent with a good curl noted in the renal pelvis and urinary bladder. The bladder was drained. I elected not to leave a dangle string because the patient's massive hydronephrosis. I felt the system needed a more extended period of time for healing and drainage
--- NOTE | 2018-03-06 10:29 | Anesthesia Evaluation Post Op ---
Date of Encounter: 03/06/18 Time of Encounter: 10:28 - Vital Signs Vital Signs: Vital Signs/O2 Sat/Glucose, Most Current Temp Pulse Resp BP Pulse Ox 03/06/18 10:24 98.8 F 72 16 110/66 100 03/06/18 10:14 55 12 106/58 98 03/06/18 10:04 64 12 107/62 99 03/06/18 09:54 97.7 F 80 16 115/79 99 03/06/18 07:19 98.0 F 67 15 116/75 97 - Lungs Lungs: Clear Ascult./Percussion - Airway Airway: Non-obstructed - Cardiovascular Regular Rate - Mental Status Mental Status: Alert & Oriented, Answers Appropriately - Pain Pain Scale: 0 Pain Scale used: Numeric (1 - 10) - Nausea Vomiting Nausea Vomiting: Not Present - Hydration Hydration: Ice chips, Has not voided - Discharge PostOp Status: Transfer Patient to floor Anes Supervising Prov Stmt: Pt seen/evaluated, VSS And has met criteria for discharge to floor. - MD Robson
[2018-03-06] MEDS ORDERED: *HR* HYDROcodone/Acet 5/325 mg TABLET PO PRN (10:32)
[2018-03-06] MEDS ORDERED: Ibuprofen 400 MG TABLET PO PRN (10:32)
[2018-03-06 11:48] VITALS: BP 99/66
[2018-03-07] MEDS ORDERED: cefTRIAXone 1,000 MG in Water for inj. (sterile) 20 ML 10 ML IVP SCH (09:00)
[2018-03-11 21:05] LABS: Calculi Mass 3 mg
== END 2018-03-06 14:22 | disposition home or self-care (01) ==
LOC: 3ANU
PROVIDERS: ADMIT Urology; ATTEND Urology